=== PATIENT | female | born 1950 | race Caucasian/White ===

== ENCOUNTER 2019-11-23 00:29 | Day surgery (SDC) | payer OTHER, SELFPAY ==
[2019-11-12 10:49] VITALS: BMI 26.0
[2019-11-23] VITALS (17 sets, daily range): BP systolic 114–151; BP diastolic 68–90; PULSE 57–78; RESP 11–20; TEMP 36.3–36.8; O2SAT 95–100
[2019-11-23] MEDS: LACTATED RINGERS 1,000 ML 30 ML IV CONT ×2 (07:36→11:46)
--- NOTE | 2019-11-23 08:30 | WPDHPUPDATE1 ---
History and Physical Update Update Date/Time: 11/23/19 08:30 History and Physical has been reviewed, including an updated exam of the patient. There are NO changes in the patient's condition. Risks, benefits, and alternatives have been discussed and questions answered. Patient agrees to proceed with procedure.
--- NOTE | 2019-11-23 08:33 | WPDANESEPPF ---
Anes - Initial Pre Proc Eval Procedure: Operation Date: 11/23/19 09:30 Proposed Procedures p Abdominoplasty - Gera Bañuelos MD Date/Time: 11/23/19 08:33 Surgeon: Gera Bañuelos MD Pre Op Diagnosis: Skin laxity Patient Data Age: 69 Gender: F Height: 5 ft 2 in Weight: 64.54 kg Allergies Allergy/AdvReac Type Severity Reaction Status Date / Time No Known Allergies Allergy Unknown Verified 11/12/19 10:27 Home Medications Medication Instructions Recorded Confirmed Type aspirin 81 mg tablet,delayed 81 mg PO DAILY 09/12/19 11/12/19 History release calcium 600 mg-D3 800 unit-mag11 1 tablet PO BID 09/12/19 11/12/19 History 50 jv-cvvu-qzaxss-jamison-s.borat tablet levothyroxine 137 mcg tablet 137 mcg PO DAILY 09/12/19 11/12/19 History hkbqlcbmfhie-vxytkbhj-hwdylio-folic 1 tablet PO DAILY 09/12/19 11/12/19 History acid 400 mcg-vit K1 20 mcg tablet omeprazole 40 mg capsule,delayed 40 mg PO DAILY 09/12/19 11/12/19 History release simvastatin 20 mg tablet 40 mg PO DAILY 09/12/19 11/12/19 History glucosamine sulfate [Glucosamine] 500 mg PO DAILY 11/12/19 11/12/19 History omega-3 fatty acids [Fish Oil 1,000 mg PO DAILY 11/12/19 11/12/19 History Concentrate] Laboratory Tests 11/23/19 08:17 Cotinine Pending Patient hx anesthesia problems: post op nausea/vomiting Family hx anesthesia problems: none PMFSH Social History Social History Smoking status: Never smoker Alcohol intake: never Anes - Eval Final PreProcedure Day of Procedure 11/23/19 08:33 Patient weight: normal Heart: regular rate and rhythm Lungs: clear to auscultation Airway: Mallampati scale class II Neurological: alert and oriented Last oral intake: >/= 8 hours ASA classification: III Emergent: no Anesthetic plan: proceed Anesthesia type and monitoring: general LMA and standard monitoring Informed Consent: The patient's anesthetic plan and its attendant risks and benefits were discussed with the patient/family/POA. Questions were solicited and answers provided to the satisfaction of the patient/family/POA.
[2019-11-23 08:38] LABS: Urine Cotinine NEGATIVE
[2019-11-23] MEDS: SCOPOLAMINE 1.5 MG PATCH TRANSDERM (08:45)
--- NOTE | 2019-11-23 11:33 | SUR.OPER ---
EBL:50CC
--- NOTE | 2019-11-23 11:36 | PM.PROC ---
Procedure Note - Detailed Date of procedure: 11/23/19 Pre-op diagnosis: Skin laxity Post-op diagnosis: same Procedure performed: Progressive tension abdominoplasty Description of procedure: She is here today for abdominoplasty. Previously and again today the risks, benefits, alternatives were discussed in extensive detail. I wanted her to be very realistic about the risks involved as well as expectations. We discussed aftercare and what to monitor for. I was very upfront about the risks of wound breakdown leading to loss of skin, open wounds, and need for additional procedures with permanent abdominal deformity. We discussed DVT/PE risks and management. Made sure answered all of her questions to her satisfaction today and consent was obtained. She was marked in the preoperative holding area with their verification. The patient was taken to the operating room placed supine on the operating table. Anesthesia was provided by anesthesiology. A cooley catheter was started. She was prepped and draped in a standard sterile fashion. A surgical time-out was taken. I placed the patient in a flexed position to verify the upper and lower markings would reach. I then placed her supine. A thorough abdominal examination was completed. Stab incisions were made and used tumescent solution. A 10 blade was used to make the upper incision. I continued dissection down to the level of fascia. Elevated just what was necessary for repair of the diastasis and discontinuous undermining otherwise. I then again flexed the bed to verify the upper skin flap would reach the lower markings without tension. Once verified I placed her supine once again and a 10 blade used to make the lower incision. I elevated up to level the umbilicus and left the umbilicus intact on a well-vascularized stalk. The intervening tissue was removed. A 2 mm blunt cannula and Exparel which was mixed 20 cc in 100 cc for a total volume of 120 cc I injected deep to the fascia bilaterally as well as along the incision lines. I plicated the diastasis recti using 0 PDO stratafix barbed suture. This was in 2 separate layers using 2 separate sutures as well. I repaired around the umbilicus leaving plenty of room for well-vascularized stalk of the umbilicus with 2-0 PDS. The patient was flexed and starting from superior to inferior began plication using 2-0 Vicryl to obliterate all space in a standard progressive tension fashion. At the umbilicus I marked out the location of the skin and inset this with 3-0 Monocryl and 4-0 nylon. I continued the remainder of the plication using 2-0 Vicryl until I reached my lower planned scar line. I trimmed any excess skin of the upper flap making sure this was a tension-free closure. I then approximated using a 3 point suture with 2-0 Vicryl followed by 3-0 stratafix ,running subcuticular 4-0 Monocryl, and tissue glue. Fluffs and an abdominal binder were placed. The patient was transferred to the bed in a flexed position. Awoken and taken to the PACU without difficulty. All instrument and sponge counts were correct at the end of the case. Anesthesia: GLMA Surgeon: Gera Bañuelos MD Estimated blood loss (mL): 20 Drains: No Packing: No Pathology: none sent Complications: No immediate complications Condition: stable Disposition: PACU Findings: 1712 grams of abdominoplasty tissue.
[2019-11-23] MEDS: ONDANSETRON INJ 4 MG/2 ML VIAL IV PUSH (12:32)
--- NOTE | 2019-11-23 12:33 | SUR.PHASEI ---
1230; PT AWAKE AND ALERT. TALKATIVE. STATES PAIN 5/10. STATES VERY SLIGHT NAUSEA ZOFRAN GIVEN PRN
--- NOTE | 2019-11-23 12:50 | SUR.PHASEI ---
1240; FAMILY UPDATED. 1245; REPORT FAXED TO FLOOR
--- NOTE | 2019-11-23 12:52 | SUR.PHASEI ---
1250; PT DENIES NAUSEA. RESTING QUIETLY.
[2019-11-23] MEDS: IBUPROFEN 600 MG TABLET PO ×2 (14:39→22:05)
[2019-11-23] MEDS: carisoprodoL 350 MG TABLET PO ×2 (14:39→22:04)
--- NOTE | 2019-11-23 14:44 | ADMGEN ---
This patient, Shahida Buchanan, was admitted to OB 2nd Floor Room 290-00. Patient/family oriented to hospital policies and general routines including ID bracelet, bed and alarms, visiting hours, pain management, procedures, bathroom and other care routines, personal items, smoking policy, room service/diet, and visiting hours. Valuables list has been completed. Information on how to activate the Rapid Response Team has been discussed. Patient/Family are encouraged to report perceived risks to care and to ask questions if they do not understand what they are told or what they should do.
[2019-11-23] MEDS: PANTOPRAZOLE 40 MG TABLET PO (22:05)
[2019-11-24 00:30] VITALS: BP 119/70; PULSE 54; RESP 16; TEMP 36.4; O2SAT 100
[2019-11-24] MEDS: ONDANSETRON INJ 4 MG/2 ML VIAL IV PUSH ×2 (04:49→12:10)
[2019-11-24 04:50] VITALS: BP 92/55; PULSE 61; RESP 16; TEMP 36.9; O2SAT 99
--- NOTE | 2019-11-24 06:20 | PC.NURSE ---
PT introductions made and plan of care discussed per post op surgery, pain management, daily care activities and pending discharge to home. Pt verbalized understanding of such care.
[2019-11-24] MEDS: IBUPROFEN 600 MG TABLET PO ×2 (08:23→14:53)
[2019-11-24] MEDS: LEVOTHYROXINE SODIUM 112 MCG TABLET PO (08:25)
[2019-11-24] MEDS: LEVOTHYROXINE SODIUM 25 MCG TABLET PO (08:25)
[2019-11-24] MEDS: SIMVASTATIN 20 MG TABLET 40 MG PO (08:26)
[2019-11-24] MEDS: PANTOPRAZOLE 40 MG TABLET PO (08:26)
[2019-11-24] MEDS: ENOXAPARIN 40 MG/0.4 ML SYRINGE SUB-Q (08:28)
--- NOTE | 2019-11-24 08:51 | WPDPN ---
Progress Note: A&P Assessment and Plan (1) Encounter for cosmetic surgery: Code(s): Z41.1 - Encounter for cosmetic surgery Status: Acute Assessment and Plan: Overall she is doing very well. This morning we will: -ambulate -she is already tolerating a diet well -pain is well controlled. She is going to take Tylenol or Motrin. No pain medications. Plan for discharge home later once ambulating, Khan has been removed. Today we spent more than 30 minutes discussing discharge instructions. What monitor for. Answered all her questions are satisfaction today. We will see her back next week. She can call with any questions or concerns at any time. She understands with shortness of breath, chest pain, or other medical emergency is to proceed to the emergency room/dial 911. (2) History of cosmetic surgery: Code(s): Z98.890 - Other specified postprocedural states Status: Acute (3) PONV (postoperative nausea and vomiting): Code(s): R11.2 - Nausea with vomiting, unspecified; Z98.890 - Other specified postprocedural states Status: Acute (4) High cholesterol: Code(s): E78.00 - Pure hypercholesterolemia, unspecified Status: Acute (5) Hypothyroid: Code(s): E03.9 - Hypothyroidism, unspecified Status: Acute (6) Hormone replacement therapy: Code(s): Z79.890 - Hormone replacement therapy Status: Acute Exam Const: General: no acute distress Eyes: Sclera: sclerae normal Resp: Effort & Inspection: normal respiratory effort Cardio: Rate: regular rate GI: GI Palp: Yes Soft to palpation Other: Abdomen is healing well. There is no signs of infection. No hematoma. No seroma. Good color and capillary refill. She had a little bit of very thin drainage around the umbilicus which is nearly resolved. Appears to be tumescent solution. I see no evidence of active bleeding. Urinary Catheter: Urinary Catheter: patent and draining Extrem: Other: No calf tenderness. Negative Homans. Objective Data Vital Signs Vital Signs: Vital Signs - 24 hr 11/23/19 11:46 11/23/19 12:00 11/23/19 12:15 Temperature 36.8 C Pulse Rate 78 66 68 Respiratory Rate 11 L 12 14 Blood Pressure 129/71 125/73 151/73 H Pulse Oximetry 99 100 97 11/23/19 12:30 11/23/19 12:45 11/23/19 13:00 Temperature Pulse Rate 68 65 62 Respiratory Rate 14 14 12 Blood Pressure 133/75 133/72 125/74 Pulse Oximetry 96 95 96 11/23/19 13:15 11/23/19 13:30 11/23/19 13:45 Temperature 36.3 C L Pulse Rate 60 63 65 Respiratory Rate 14 16 16 Blood Pressure 135/76 134/72 147/90 H Pulse Oximetry 96 96 98 11/23/19 14:00 11/23/19 14:15 11/23/19 14:30 Temperature 36.3 C L Pulse Rate 61 57 L 68 Respiratory Rate 16 16 16 Blood Pressure 151/86 H 140/83 146/80 H Pulse Oximetry 98 98 99 11/23/19 15:00 11/23/19 16:00 11/23/19 17:00 Temperature Pulse Rate 62 62 64 Respiratory Rate 16 16 16 Blood Pressure 145/83 H 114/72 127/79 Pulse Oximetry 99 97 98 11/23/19 19:30 11/24/19 00:30 11/24/19 04:50 Temperature 36.6 C 36.4 C 36.9 C Pulse Rate 62 54 L 61 Respiratory Rate 18 16 16 Blood Pressure 128/84 119/70 92/55 L Pulse Oximetry 99 100 99 Intake/Output Intake/Output: Intake & Output 11/21/19 11/22/19 11/23/19 11/24/19 23:59 23:59 23:59 23:59 Intake Total 1030 1150 Output Total 1300 950 Balance -270 200 Meds/Results Medications: Active Medications Generic Name Dose Route Start Last Admin Trade Name Freq PRN Reason Stop Dose Admin Carisoprodol 350 mg 11/23/19 14:00 11/24/19 06:50 Soma PO Not Given Q8HR [facility] Enoxaparin Sodium 40 mg 11/24/19 09:00 11/24/19 08:28 Lovenox SUB-Q [address] [facility] Administration Ibuprofen 600 mg 11/23/19 14:15 11/24/19 08:23 Motrin PO 600 mg Q6H PRN Administration Cramping Levothyroxine Sodium 112 mcg 11/24/19 06:30 11/24/19 08:25 Synthroid PO 112 mcg DAILY@0630 [facility]
[2019-11-24 09:00] VITALS: BP 114/65; PULSE 75; RESP 18; TEMP 37.7; O2SAT 100
--- NOTE | 2019-11-24 09:02 | P.DS_ITS ---
DS: Diagnosis Admitting Diagnosis Admitting Diagnosis: Encounter for cosmetic surgery DS: Summary Time Spent with Patient Time attestation: Total time spent providing and/or coordinating discharge services: 30 minutes Patient has done very well. She is tolerating p.o.. Pain is controlled without any medication. She is ambulating this morning and as tolerated after removal of the catheter will plan for discharge home later today. Exam Const: General: no acute distress Eyes: Sclera: sclerae normal Resp: Effort & Inspection: normal respiratory effort Cardio: Rate: regular rate GI: GI Palp: Yes Soft to palpation Other: Abdomen is healing well. There is no signs of infection. No hematoma. No seroma. Good color and capillary refill. She had a little bit of very thin drainage around the umbilicus which is nearly resolved. Appears to be tumescent solution. I see no evidence of active bleeding. Urinary Catheter: Urinary Catheter: patent and draining Extrem: Other: No calf tenderness. Negative Homans. Discharge Plan Discharge Patient Disposition: Home, Self-Care Discharge Instructions: POST OPERATIVE DISCHARGE INSTRUCTIONS FOR Abdominoplasty GERA BAÑUELOS M.D. [facility] PLASTIC SURGERY [facility] [place] [address] * No driving for 24 hours after anesthesia and while you are taking pain medication. * Take all prescribed medication as directed * Diet as tolerated. * No lifting or activity that raises blood pressure for 48 hours. * No lifting more than 20 lb for 6 weeks. * Regular walking / ambulation. * No showering until directed to. Once you shower do not take pain medication before showering as the combination of medication and heat may cause you to feel dizzy or pass out. * No pools or tubs for 2 weeks. * Call with any questions or concerns. * Dressing Care: Abdominal binder 23 hours per day, gently applied. May shower. * Remain flexed at the waist at all times. Slowly straighten over the next week as tolerated. * Remove the Scopolamine patch that was placed behind your ear in 72 hours or less. Wash your hands after touching. If you have any questions or concerns, please call the office . If it is after hours you will be directed to the medication administration professional exchange. Shortness of breath, chest pain, or other medical emergency dial 911 / proceed to the Emergency Room. Follow-up/Referrals: Gera Bañuelos MD [Physician] - 1 Week Discharge Medications: New carisoprodol 350 mg Tablet 350 mg PO Q8HR Qty: 21 RF: 0 ibuprofen 600 mg Tablet 600 mg PO Q6H PRN (Reason: Cramping) Qty: 28 RF: 0 Continued levothyroxine 137 mcg tablet 137 mcg PO DAILY RF: 0 simvastatin 20 mg tablet 40 mg PO DAILY RF: 0 omeprazole 40 mg capsule,delayed release(DR/EC) 40 mg PO DAILY RF: 0 aspirin [Adult Aspirin Regimen] 81 mg tablet,delayed release (DR/EC) 81 mg PO DAILY RF: 0 One-A-Day Women's 50 Plus 400-20 mcg tablet 1 tablet PO DAILY RF: 0 Caltrate 600-D Plus Minerals 600 mg calcium- 800 unit-50 mg tablet 1 tablet PO BID RF: 0 omega-3 fatty acids [Fish Oil Concentrate] 1,000 mg Capsule 1,000 mg PO DAILY RF: 0 glucosamine sulfate [Glucosamine] 500 mg Tablet 500 mg PO VIET
[2019-11-24] MEDS: ACETAMINOPHEN 500 MG TABLET 1000 MG (10:06)
[2019-11-24] MEDS: SIMETHICONE 80 MG TAB.CHEW (10:08)
--- NOTE | 2019-11-24 11:46 | WPDANESPN ---
Anes - Prog Note Post-Op Date/Time: 11/24/19 11:46 Cardiovascular status: normal Respiratory status: normal Airway patency: baseline Mental status: baseline Post-Op hydration status: normal Vital Signs: Last Vital Signs Temp 37.7 C H 11/24/19 09:00 Pulse 75 11/24/19 09:00 Resp 18 11/24/19 09:00 BP 114/65 11/24/19 09:00 Pulse Ox 100 11/24/19 09:00 Pain Score (VAS): 0/10. Patient resting up to bedside chair at time of assessment, appears comfortable. Support persons at bedside. I/O: Intake & Output 11/23/19 11/24/19 11/24/19 23:59 07:59 15:59 Intake Total 730 1150 Output Total 925 950 Balance -195 200 Post-procedural complaints: nausea (relief with PRNs. Discussed nausea with RN, pre-existing orders for nausea available. ) Patient Feedback: Patient satisfied with anesthetic care.
[2019-11-24] MEDS: SIMETHICONE 80 MG TAB.CHEW PO ×2 (12:09→14:54)
[2019-11-24] MEDS: ACETAMINOPHEN 500 MG TABLET 1000 MG PO (14:54)
--- NOTE | 2019-11-24 15:00 | PC.NURSE ---
PT received discharge instructions per protocol and pt and family verbalized understanding of such care.
--- NOTE | 2019-11-24 15:25 | PC.NURSE ---
PT discharged to home via wheelchair accompanied by family and taken to waiting car. Follow up appts confirmed
== END 2019-11-24 15:25 | disposition home or self-care (01) ==
LOC: ANHSURGERY 08:50 → ANHOB2 12:47
PROVIDERS: PCP Family Medicine; Visit Provider Surgery Plastic and Reconstructive Surgery
PROC: (CPT 15830; principal; 2019-11-23 09:30)
DX: Z41.1 Encounter for cosmetic surgery (principal); L57.4 Cutis laxa senilis; E78.00 Pure hypercholesterolemia, unspecified; E03.9 Hypothyroidism, unspecified; Z79.82 Long term (current) use of aspirin; Z79.890 Hormone replacement therapy
CPT/HCPCS: 15830; 15847; 36415; 80307; 99199; A9270; C9290; J0131; J0171; J1100; J1170; J1650; J2250; J2405; J2704; J3010; J7120

== ENCOUNTER 2020-05-28 10:42 | Outpatient (CLI) | payer MEDICARE, OTHER, SELFPAY ==
--- NOTE | ~2020-05-28 | MM_ITS ---
EXAMINATION: MM screening meghana BI w leonides HISTORY: Screening TECHNIQUE: Craniocaudal and mediolateral oblique 3-D tomosynthesis images were obtained and synthetic 2-D images were generated. CAD analysis was submitted and interpreted. COMPARISON: Comparison to multiple prior studies sequentially, with oldest reviewed study dated 04/03. BREAST PARENCHYMAL COMPOSITION: There are scattered areas of fibroglandular density. FINDINGS: There is no evidence of suspicious mass, calcification, or architectural distortion to sugg est malignancy in either breast. There has been no suspicious interval change. IMPRESSION: 1. No mammographic evidence of malignancy. 2. Recommend routine screening mammography in one year. BI-RADS Category 1: Negative Reviewed, dictated and finalized at location D.
== END 2020-05-28 10:43 | disposition home or self-care (01) ==
PROVIDERS: PCP Family Medicine; Visit Provider Obstetrics & Gynecology
DX: Z12.31 Encounter for screening mammogram for malignant neoplasm of breast (principal)
CPT/HCPCS: 77063; 77067

== ENCOUNTER 2021-05-29 09:05 | Outpatient (CLI) | payer MEDICARE, OTHER, SELFPAY ==
--- NOTE | ~2021-05-29 | MM_ITS ---
EXAMINATION: MM screening meghana BI w leonides HISTORY: Screening TECHNIQUE: Craniocaudal and mediolateral oblique 3-D tomosynthesis images were obtained and synthetic 2-D images were generated. CAD analysis was submitted and interpreted. COMPARISON: Comparison to multiple prior studies sequentially, with oldest reviewed study dated 04/16. BREAST PARENCHYMAL COMPOSITION: The breasts are heterogeneously dense, which may obscure small masses . FINDINGS: There is no evidence of suspicious mass, calcification, or architectural distortion to sugg est malignancy in either breast. There has been no suspicious interval change. IMPRESSION: 1. No mammographic evidence of malignancy. 2. Recommend routine screening mammography in one year. BI-RADS Category 1: Negative Reviewed, dictated and finalized at location A.
== END 2021-05-29 09:06 | disposition home or self-care (01) ==
LOC: ANHIMG 09:08
PROVIDERS: PCP Family Medicine; Visit Provider Family Medicine
DX: Z12.31 Encounter for screening mammogram for malignant neoplasm of breast (principal)
CPT/HCPCS: 77063; 77067

== ENCOUNTER 2021-08-31 08:01 | Outpatient (CLI) | payer MEDICARE, OTHER, SELFPAY ==
--- NOTE | ~2021-08-31 | DEXA_ITS ---
Bone Density Report Name: Shahida Buchanan Age: 71 Sex: Female Ethnicity: White Date of : 1950 Indication: postmenopausal; height loss; hysterectomy; Referring Provider: NISHA GUEVARA Study: Bone densitometry was performed. Exam Date: August 31, 2021 Accession number: [id number] Bone Density: Region BMD T-score Z-score Classification AP Spine (L1-L4) 1.096 0.4 2.7 Normal Femoral Neck (Left) 0.621 -2.1 -0.1 Osteopenia Total Hip (Left) 0.803 -1.1 0.5 Osteopenia Total Hip Bilateral Avg 0.779 -1.3 0.3 Osteopenia Femoral Neck (Right) 0.620 -2.1 -0.1 Osteopenia Total Hip (Right) 0.755 -1.5 0.1 Osteopenia World Health Organization criteria for BMD impression classify patients as: Normal (T-score at or above -1.0), Osteopenia (T-score between -1.0 and -2.5), or Osteoporosis (T-score at or below -2.5). 10-year Fracture Risk(1): Major Osteoporotic Fracture 13% Hip Fracture 2.8% Reported Risk Factors: [place] (), Neck BMD=0.620, BMI=26.1 (1) FRAX(R) Version 3.08. Fracture probability calculated for an untreated patient. Fracture probability may be lower if the patient has received treatment. Clinical Information Provided by Patient: Has the following medical conditions: Hysterectomy Patient maximum height was 64 Menopause Age: 34 Does not regularly consume dairy products Drinks caffeinated beverages Onset of menses at age 14 Number of children 2 Impression: The patient has low bone mass, based on the Left Femoral Neck T-score. The patient has an estimated ten-year risk of hip fracture of 2.8% and an estimated ten-year risk of major fracture of 13%, based on the WHO FRAX algorithm. Discussion: BONE DENSITY IS LOW AT ONE OR MORE SKELETAL SITES. This patient's lowest T-score is low at one or more skeletal sites. It meets the World Health Organization's (WHO) criteria for ?low bone mass? (T-score between -1.0 and -2.5). The patient's 10-year risk of fracture as calculated by FRAX is less than the threshold where pharmacological therapy is recommended by the National Osteoporosis Foundation (NOF). However, all treatment decisions require clinical judgment and consideration of individual patient factors, including patient preferences, comorbidities, previous drug use, risk factors not captured in the FRAX model (e.g., frailty, falls, vitamin D deficiency, increased bone turnover, interval significant decline in bone density) and possible under or overestimation of fracture risk by FRAX. The patient should follow a healthful lifestyle (good nutrition with adequate calcium and vitamin D, and appropriate weight-bearing exercise). Follow-Up: Consider repeating this study in 2 to 3 years to reassess this patient's status, or sooner if there is some new clinical indication. Reported by: ISABELL on
== END 2021-08-31 08:02 | disposition home or self-care (01) ==
LOC: ANHIMG 08:04
PROVIDERS: PCP Family Medicine
DX: Z78.0 Asymptomatic menopausal state (principal); M85.80 Other specified disorders of bone density and structure, unspecified site
CPT/HCPCS: 77080

== ENCOUNTER → 2021-09-01 15:46 | Outpatient (REF) | payer MEDICARE, OTHER, SELFPAY | LOC: ANHLAB 15:46 | PROVIDERS: PCP Family Medicine; Visit Provider Nurse Practitioner | DX: C44.319 Basal cell carcinoma of skin of other parts of face (principal) | CPT/HCPCS: 88305 ==

== ENCOUNTER → 2021-10-19 07:53 | Outpatient (REF) | payer MEDICARE, OTHER, SELFPAY | LOC: ANHLAB 07:53 | PROVIDERS: PCP Family Medicine; Visit Provider Nurse Practitioner | DX: C44.719 Basal cell carcinoma of skin of left lower limb, including hip (principal) | CPT/HCPCS: 88305; 88331 ==

== ENCOUNTER 2022-07-02 10:44 | Outpatient (CLI) | payer MEDICARE, OTHER, SELFPAY ==
--- NOTE | ~2022-07-02 | MM_ITS ---
EXAMINATION: MM screening meghana BI w leonides HISTORY: Screening mammogram TECHNIQUE: Craniocaudal and mediolateral oblique 3-D tomosynthesis images were obtained and synthetic 2-D images were generated. CAD analysis was submitted and interpreted. COMPARISON: 05/29/2021, 05/28/2020, 05/12/2019 bilateral screening mammogram examinations BREAST PARENCHYMAL COMPOSITION: The breasts are heterogeneously dense, which may obscure small masses . FINDINGS: Right breast: There is no evidence of suspicious mass, calcification, or architectural dist ortion to suggest malignancy in the right breast. There has been no suspicious interval change. Left breast: There is interval asymmetry in the anterior central right breast. Diagnostic left mammog elisa is recommended, with ultrasound if required. IMPRESSION: 1. Interval left breast asymmetry 2. Diagnostic left mammogram is recommended, with ultrasound if required BI-RADS Category 0: Incomplete: Needs additional imaging evaluation. Reviewed, dictated and finalized at location A.
== END 2022-07-02 10:45 | disposition home or self-care (01) ==
LOC: ANHIMG 10:45
PROVIDERS: PCP Family Medicine; Visit Provider Family Medicine
DX: Z12.31 Encounter for screening mammogram for malignant neoplasm of breast (principal); R92.8 Other abnormal and inconclusive findings on diagnostic imaging of breast
CPT/HCPCS: 77063; 77067

== ENCOUNTER 2022-07-26 13:52 | Outpatient (CLI) | payer MEDICARE, OTHER, SELFPAY ==
--- NOTE | ~2022-07-26 | MMUS_ITS ---
EXAMINATION: MM diagnostic meghana LT w leonides, US breast LT limited HISTORY: Left breast focal asymmetry on screening mammogram TECHNIQUE: Additional 3-D tomosynthesis images of the left breast were performed and synthetic 2-D im ages were generated. CAD analysis was submitted and interpreted. High resolution limited left breast ultrasound was performed. COMPARISON: 07/02/2022, 05/29/2021, 05/28/2020 FINDINGS: MAMMOGRAPHIC FINDINGS: There is a return to baseline fibroglandular appearance with spot compression of the left breast in t he area questioned on screening mammogram. ULTRASOUND: There is a 4 mm cyst at the 4:00 location 5 cm from the nipple. No suspicious cystic or solid mass is identified. IMPRESSION: 1. No mammographic or sonographic evidence of malignancy. 2. Recommend routine screening mammography in one year. BI-RADS Category 2: Benign finding(s). Reviewed, dictated and finalized at location A. IMPRESSION: 1. No mammographic or sonographic evidence of malignancy. 2. Recommend routine screening mammography in one year. BI-RADS Category 2: Benign finding(s).
== END 2022-07-26 13:53 | disposition home or self-care (01) ==
LOC: ANHIMG 13:55
PROVIDERS: PCP Family Medicine; Visit Provider Family Medicine
DX: R92.8 Other abnormal and inconclusive findings on diagnostic imaging of breast (principal)
CPT/HCPCS: 76642; 77061; 77065; G0279

== ENCOUNTER 2023-08-15 09:02 | Outpatient (CLI) | payer MEDICARE, OTHER, SELFPAY ==
--- NOTE | ~2023-08-15 | MM_ITS ---
EXAMINATION: MM screening meghana BI w leonides HISTORY: Screening mammogram TECHNIQUE: Craniocaudal and mediolateral oblique 3-D tomosynthesis images were obtained and synthetic 2-D images were generated. CAD analysis was submitted and interpreted. COMPARISON: 07/26/2022 diagnostic left mammogram and limited left breast ultrasound examination 07/02/2022, 05/29/2021, 05/28/2020 bilateral screening mammogram examinations BREAST PARENCHYMAL COMPOSITION: The breasts are heterogeneously dense, which may obscure small masses . FINDINGS: There is no evidence of suspicious mass, calcification, or architectural distortion to sugg est malignancy in either breast. There has been no suspicious interval change. IMPRESSION: 1. No mammographic evidence of malignancy. 2. Recommend routine screening mammography in one year. BI-RADS Category 1: Negative Reviewed, dictated and finalized at location A.
== END 2023-08-15 09:03 | disposition home or self-care (01) ==
LOC: ANHIMG 09:07
PROVIDERS: PCP Family Medicine; Visit Provider Family Medicine
DX: Z12.31 Encounter for screening mammogram for malignant neoplasm of breast (principal)
CPT/HCPCS: 77063; 77067

== ENCOUNTER 2024-11-06 09:35 | Outpatient (CLI) | payer MEDICARE, OTHER, SELFPAY ==
--- NOTE | ~2024-11-06 | MM_ITS ---
EXAMINATION: MM screening [facility] BI w leonides HISTORY: Screening mammogram TECHNIQUE: Craniocaudal and mediolateral oblique 3-D tomosynthesis images were obtained and synthetic 2-D images were generated. CAD analysis was submitted and interpreted. COMPARISON: 08/15/2023, 07/02/2022, 05/29/2021 BREAST PARENCHYMAL COMPOSITION:Not Dense. There are scattered areas of fibroglandular density. FINDINGS: No suspicious mass, calcification, or architectural distortion are identified in either aysha ast to suggest malignancy. There has been no suspicious interval change. IMPRESSION: No mammographic evidence of malignancy. Recommend routine screening mammography in one year. BI-RADS Category 1: Negative Reviewed, dictated and finalized at location . SFORMATION MANAGER
== END 2024-11-06 09:36 | disposition home or self-care (01) ==
LOC: ANHIMG 09:37
PROVIDERS: PCP Family Medicine; Visit Provider Family Medicine
DX: Z12.31 Encounter for screening mammogram for malignant neoplasm of breast (principal)
CPT/HCPCS: 77063; 77067